=== PATIENT | female | born 1975 | race Caucasian/White ===

== ENCOUNTER → 2021-05-22 14:06 | Outpatient (CLI) | payer OTHER, MEDICAID, SELFPAY ==
[2021-05-22 15:02] LABS: COVID19 -Nasal RAPID Negative (Negative)
== END ==
PROVIDERS: PCP Family Medicine; Visit Provider Obstetrics & Gynecology
DX: Z20.822 Contact with and (suspected) exposure to COVID-19; Z01.812 Encounter for preprocedural laboratory examination
CPT/HCPCS: 87635; C9803

== ENCOUNTER 2021-05-23 08:16 | Day surgery (SDC) | payer OTHER, MEDICAID, SELFPAY ==
[2021-05-22 08:15] VITALS: BMI 23.2
[2021-05-23] VITALS (10 sets, daily range): BP systolic 88–102; BP diastolic 48–68; PULSE 62–73; RESP 11–16; TEMP 36.2–37.3; O2SAT 96–99; BMI 23.2
--- NOTE | 2021-05-23 | PATH_ITS ---
[facility] Accession Number: [id number] . 01 Material submitted: . PART A: cervix - ANTERIOR LIP OF CERVIX PART B: cervix - POSTERIOR LIP OF CERVIX PART C: endocervix - ENDO-CERVICAL CURETTINGS . 02 Diagnosis: A. Anterior Lip of Cervix, Excision: Transformation zone with mild active inflammation and no evidence of neoplasia. . B. Posterior Lip of Cervix, Excision: High-grade squamous intraepithelial neoplasia (DANIELLE-3) with extension to inked endocervical edge. Please see comment. No evidence of invasive carcinoma. . C. Endocervicl Curettings: Squamous and endocervical epithelium with no evidence of neoplasia. V 05/29/2021 1801 Local . 02 Comment: The area of high-grade squamous intraepithelial neoplasia extends to the black-inked edge of the specimen which is designated as possible endocervical resection margin. . A prior endocervical smear was not available for review. . 02 Electronically signed: . Isadora Rivas MD, Pathologist NPI- [id number] . 01 Gross description: . A. Received in formalin, labeled anterior lip of cervix, and consists of a partial cervical excision measuring 1.3 x 0.9 x 0.4 cm. The possible endocervical resection margin is inked black. The stromal margin is inked blue. The ectocervical mucosa is grossly unremarkable. The specimen is radially sectioned and is sequentially and entirely submitted in cassettes A1-A2. B. Received in formalin, labeled posterior lip of cervix, and consists of a partial cervical excision measuring 1.2 x 0.7 x 0.4 cm. The possible endocervical resection margin is inked black. The stromal margin is inked blue. The ectocervical mucosa is grossly unremarkable. The specimen is radially sectioned and entirely submitted in one cassette. C. Received in formalin, labeled endocervical curettings, and consists of an aggregate of jackson tissue fragments measuring 1.5 x 0.5 x 0.1 cm in aggregate. The specimen is filtered and entirely submitted in one cassette. ([id number]) /KEN 05/28/2021 0341 Local . 02 Microscopic: . Immunohistochemical stains were performed on multiple blocks in order to evaluate cells of interest. All control stains showed appropriate reactivity. . RESULTS: P16 (block A2): Negative. P16 (block B1): Positive for block nuclear and cytoplasmic reactivity. P16 (block C1): Negative. . INTERPRETATION: Block B1 shows an area of block nuclear and cytoplasmic reactivity consistent with high-grade squamous intraepithelial neoplasia. The control stain showed appropriate reactivity. . * This test was developed and its performance characteristics determined by [facility]. It has not been cleared or approved by the U.S. Food and Drug Administration. The FDA has determined that such clearance or approval is not necessary. This test is used for clinical purposes. It should not be regarded as investigational or for research. . 02 Pathologist provided ICD-10: D06.9 . 02 CPT . 612964, 830311, 681180, P42747 Specimen Comment: A courtesy copy of this report has been sent to [phone] Performed at: 01 [facility] [address] [place] [address] [id number] MD Dex Calderon MD Phone: [phone] Performed at: 02 [facility] [address] [place] [address] [id number] MD Isadora Rivas MD Phone: [phone]
[2021-05-23] MEDS: LACTATED RINGERS 1,000 ML 100 ML IV ×2 (09:00→10:27)
--- NOTE | 2021-05-23 09:57 | PM.PREOP ---
Pre-operative Note COVID-19 COVID-19 status: Negative Result date/Date tested (Pos, Neg/Pending): 05/22/21 Criteria for continued procedure: Expected advancement of disease process Interval Note History & Physical reviewed/Exam performed by Physician: Yes Changes to H&P: No
--- NOTE | 2021-05-23 09:58 | SUR.OPER ---
Lithotomy on padded OR bed, head on pillow, arms secured on padded arm boards at <90 degrees abduction. Legs secured in padded yellow fins stirrups.
[2021-05-23] MEDS: FERRIC SUBSULFATE 8 GM SOLUTION 8 ML TOP (10:09)
[2021-05-23] MEDS: LIDOCAINE 1% W/EPI 20 ML INJ (10:10)
[2021-05-23] MEDS: POTASSIUM IODIDE/IODINE 473 ML SOLUTION TOP (10:11)
--- NOTE | 2021-05-23 10:25 | PM.GYNOP.1 ---
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 No areas of reduced Lugol's uptake on cervix, no visible lesions. Specimen(s): other (anterior and posterior lip of cervix, endocervical curettings.) Estimated blood loss (mL): 0 Procedure in detail: After proper consents were obtained, the patient was taken to the operating room. IV sedation was induced, and she was placed in the dorsal lithotomy position and draped in the normal sterile fashion. The patient had voided en route to the OR. A coated speculum was placed in to the vagina and good visualization of the cervix was achieved. The cervix was coated with Lugol's solution, and the above findings noted. 5ccms of 1% lidocaine with epi were injected into the stroma of the cervix. A 7asf7cm LEEP loop was used to removed the anterior and posterior lip of the cervix, and then the endocervical canal. An endocervical curettage was performed. Hemostasis was achieved with roller ball cautery, and monsels solution placed as well. The patient tolerated the procedure well, and all counts were correct. She was taken to the PACU in stable condition. IVF: 500ccs LR Complications: none Post-operative Condition: stable Disposition: PACU Plan for aftercare: Routine postoperative care
== END 2021-05-23 11:47 | disposition home or self-care (01) ==
PROVIDERS: PCP Family Medicine; Referring Provider Obstetrics & Gynecology; Visit Provider Obstetrics & Gynecology
PROC: 0UBC7ZZ Excision of Cervix, Via Natural or Artificial Opening (ICD-10-PCS; CPT 57522; principal; 2021-05-23 09:45)
DX: D06.0 Carcinoma in situ of endocervix (principal); B97.7 Papillomavirus as the cause of diseases classified elsewhere
CPT/HCPCS: 57460; 81025; A9270; J1100; J1885; J2250; J2405; J2704; J3010

== ENCOUNTER 2021-07-03 07:41 | Day surgery (SDC) | payer OTHER, MEDICAID, SELFPAY ==
[2021-06-26 08:19] VITALS: BMI 23.2
[2021-07-03] VITALS (7 sets, daily range): BP systolic 95–105; BP diastolic 54–66; PULSE 67–77; RESP 12–16; TEMP 36.4–36.6; O2SAT 96–100; BMI 23.2
--- NOTE | 2021-07-03 | PATH_ITS ---
[facility] Accession Number: [id number] . 01 Material submitted: . PART A: body - ANTERIOR LIP PART B: body - POSTERIOR LIP PART C: endocervix - ENDOCERVIX . 01 Diagnosis: A. Anterior Lip, LEEP Biopsy: Changes consistent with previous instrumentation. No dysplasia identified. The endocervical and ectocervical margins appear negative for dysplasia. Negative for p16 block immunostaining. Please see comment. . B. Posterior Lip, LEEP Biopsy: Fibromuscular tissue with a predominantly eroded mucosal surface. Detached fragments of metaplastic squamous mucosa and endocervical glandular elements. Negative for squamous dysplasia or malignancy. Negative for glandular dysplasia or malignancy. Changes suggestive of previous instrumentation are present. Negative for p16 block immunostaining. Please see comment. . C. Endocervix: Fibromuscular tissue with a predomnantly eroded mucosal surface. Detached fragments of squamous and glandular epithelium, obscured by electrocautery artifact. Negative for p16 block immunostaining. Please see comment. [facility] 07/11/2021 1125 Local . 01 Comment: This patient's previous biopsies are reviewed ([facility] [id number]; 05/23/21). The focus of high grade dysplasia in the posterior lip of cervix (part B) is quite focal and approximates the black-inked margin. No residual dysplasia is identified in the current specimens. P16 immunostaining is performed as an additional precaution in a background of electrocautery; no residual high grade dysplasia is identified. . . . . 01 Electronically signed: . Yecenia Kulkarni MD, Pathologist NPI- [id number] . 01 Gross description: . Part A: ANTERIOR LIP: Received in formalin is 1 fragment of jackson soft tissue measuring 0.9 x 0.9 x 0.7 cm. Tissue is inked. Specimen is sectioned and submitted in its entirety in 1 cassette. Part B: POSTERIOR LIP: Received in formalin is 1 fragment of jackson soft tissue measuring 1.5 x 1.2 x 0.5 cm. Tissue is inked. Specimen is sectioned and submitted in its entirety in 1 cassette. Part C: ENDOCERVIX: Received in formalin are minute fragments of mucoid and hemorrhagic material measuring 1.5 x 1.2 x 0.5 cm in aggregate. Submitted in toto in 1 cassette. /CPE 07/05/2021 0329 Local . 01 Microscopic: . An immunohistochemical stain for p16 is performed on blocks A1, B1 and C1 to evaluate for block reactivity and is negative for block immunostaining. The control stained with appropriate reactivity. . The absence of p16 block immunostaining mitigates against the presence of high risk HPV DNA in this biopsy. . * This test was developed and its performance characteristics determined by [facility]. It has not been cleared or approved by the U.S. Food and Drug Administration. The FDA has determined that such clearance or approval is not necessary. This test is used for clinical purposes. It should not be regarded as investigational or for research. . 01 Pathologist provided ICD-10: R87.613 . 01 CPT . 603302, 510959, 532368, X96033 Specimen Comment: A courtesy copy of this report has been sent to [phone] Performed at: 01 [facility] [address] [place] [address], [place], [place] [id number] MD Dex Calderon MD Phone: [phone]
[2021-07-03 08:14] LABS: COVID19 -Nasal RAPID Negative (Negative)
--- NOTE | 2021-07-03 08:33 | P.HPOB_ITS ---
History of Present Illness History of Present Illness Reason for admission: other Narrative: Isabella Gunn is a 46 year old woman with a history of cervical dysplasia, presenting for a repeat LEEP after her last had a positive endocervical margin for HSIL. The patient reports feeling well today with no symptoms or concerns, denies changes in her health history, and reports that she has not been sexually active since her last procedure. We discussed the risks of LEEP including damage to bowel and bladder, infection, hemorrhage, and ongoing positive margins or recurrence. The patient vocalized understanding, informed consent was obtained, and consent was signed. [facility] Medical History Chronic pain Depression Frequent headaches Surgical History H/O LEEP (05/23/21) H/O ovarian cystectomy Social History household members: family Smoking Status: Never smoker alcohol intake: current Meds Home Medications and Allergies Home Medications Medication Instructions Recorded Confirmed Type L norgest/E estradiol-E estrad 1 tab PO DAILY 04/10/21 07/03/21 History 0.10 mg-20 mcg (84)/10 mcg(7) tabs,3mos ([facility]) duloxetine 60 mg capsule,delayed 60 mg PO DAILY 04/10/21 07/03/21 History release gabapentin 600 mg tablet 600 mg PO TID 04/10/21 07/03/21 History trazodone 100 mg tablet 100 mg PO BEDTIME PRN 04/10/21 07/03/21 History spironolactone 100 mg tablet 100 mg PO DAILY #0 05/23/21 07/03/21 History sumatriptan succinate 100 mg tablet 100 mg PO DAILY #0 05/23/21 07/03/21 History Allergies Allergy/AdvReac Type Severity Reaction Status Date / Time No Known Drug Allergies Allergy Verified 07/03/21 08:22 Review of Systems Constitutional Constitutional: Reports system reviewed and no additional complaints, except as documented Cardiovascular Cardiovascular: Reports system reviewed and no additional complaints, except as documented Respiratory Respiratory: Reports system reviewed and no additional complaints, except as documented Gastrointestinal Gastrointestinal: Reports system reviewed and no additional complaints, except as documented Genitourinary Genitourinary: Reports system reviewed and no additional complaints, except as documented Exam Const General: cooperative, healthy appearing, comfortable and well groomed Resp Effort & Inspection: normal respiratory effort Auscultation: clear to auscultation bilaterally Cardio Rate: regular rate Rhythm: regular rhythm Objective Labs Labs: Laboratory Results - last 24 hr 07/03/21 07:45 SARS-CoV-2 (PCR) Negative Assessment & Plan Assessment and plan (1) HPV (human papilloma virus) infection: Status: Acute (2) Cervical dysplasia: Problem details: This patient is admitted for a repeat LEEP after a positive endocervical margin. Risks and benefits were discussed and consents were signed as above. The patient is being prepped for surgery per the usual protocol. Status: Acute Time Spent With Patient Critical Care time: I spent a total of [] minutes of critical care time on this patient's care today; this time is exclusive of procedural time.
[2021-07-03] MEDS: LACTATED RINGERS 1,000 ML 100 ML IV (08:43)
[2021-07-03] MEDS: POTASSIUM IODIDE/IODINE 473 ML SOLUTION TOP (10:06)
[2021-07-03] MEDS: FERRIC SUBSULFATE 8 GM SOLUTION 8 ML TOP (10:11)
[2021-07-03] MEDS: LIDOCAINE 1% W/EPI 20 ML INJ (10:11)
--- NOTE | 2021-07-03 10:28 | PM.GYNOP.1 ---
Operative Date/Time/Diagnoses Date of procedure: 07/03/21 Time of procedure: 09:00 Pre-op diagnosis: Cervical dysplasia Post-op diagnosis: same Procedure & Clinicians Procedure: Procedures Operation Date: 07/03/21 09:15 Actual Procedure Side Surgeon p LEEP Procedure Ivette Jones MD Indications: Cervical dysplasia, HPV infection Surgeon: Ivette Jones Anesthesia Type: MAC +/- Operative Notes Findings: Normal vulva and vagina. Cervix healing well after prior LEEP. No areas of poor Lugols uptake. Specimen(s): other (Anterior lip, posterior lip, endocervix. ECC sent with endocervix. ) Estimated blood loss (mL): 5 Procedure in detail: After proper consents were obtained, the patient was taken to the operating room. IV sedation was induced, and she was placed in the dorsal lithotomy position and draped in the normal sterile fashion. Straight catheterization was performed as part of the prep. A coated speculum was placed in to the vagina and good visualization of the cervix was achieved. The cervix was coated with Lugol's solution, and the above findings noted. 5ccms of 1% lidocaine with epi were injected into the stroma of the cervix. A 3lyi6wo LEEP loop was used to removed the anterior and posterior lip of the cervix, and then the endocervical canal. An endocervical curettage was performed. Hemostasis was achieved with roller ball cautery, and monsels solution applied. The patient tolerated the procedure well, and all counts were correct. She was taken to the PACU in stable condition. She declined a test as she is not sexually active. IVF: 700ccs LR Complications: none Post-operative Condition: stable Disposition: PACU Plan for aftercare: Home with precautions
--- NOTE | 2021-07-03 10:33 | SUR.OPER ---
Lithotomy on padded OR bed, head on pillow, arms secured on padded arm boards at <90 degrees abduction. Legs secured in padded yellow fins stirrups. Patient voided around 1000 in pre-op area prior to entering Operating room.
== END 2021-07-03 11:31 | disposition home or self-care (01) ==
PROVIDERS: PCP Family Medicine; Referring Provider Obstetrics & Gynecology; Visit Provider Obstetrics & Gynecology
PROC: 0UBC7ZZ Excision of Cervix, Via Natural or Artificial Opening (ICD-10-PCS; CPT 57522; principal; 2021-07-03 09:15)
DX: R87.613 High grade squamous intraepithelial lesion on cytologic smear of cervix (HGSIL) (principal); B97.7 Papillomavirus as the cause of diseases classified elsewhere; Z20.822 Contact with and (suspected) exposure to COVID-19
CPT/HCPCS: 57522; 81025; 82962; 87635; C9803; A9270; J1100; J1885; J2405; J2704; J3010